=== PATIENT | female | born 1960 | race Caucasian/White ===

== ENCOUNTER → 2017-12-24 | Emergency (ER) | payer OTHER ==
[~2017-12-24] VITALS: Ht 152.4 cm; Wt 70.3 kg
[~2017-12-24] MED LIST: ATENOLOL50 MG; COZAAR100 MG; METFORMIN HCL500 MG
== END | disposition home or self-care (01) ==
LOC: ER 10:19
DX: E13.65 Other specified diabetes mellitus with hyperglycemia (principal)